=== PATIENT | female | born 1980 | race Native Hawaiian/Other Pacific Islander ===

== ENCOUNTER 2019-12-29 09:53 | Outpatient (CLI) | payer OTHER | END 2019-12-29 23:14 | disposition home or self-care (01) | LOC: US 09:53 | PROVIDERS: ATTEND Nurse Practitioner Family | DX: R60.0 Localized edema (principal) ==

== ENCOUNTER 2019-12-30 14:17 | Outpatient (CLI) | payer OTHER | END 2019-12-30 22:46 | disposition home or self-care (01) | LOC: US 14:17 | PROVIDERS: ATTEND Registered Nurse | DX: R22.42 Localized swelling, mass and lump, left lower limb (principal) ==

== ENCOUNTER 2021-12-08 12:36 | Outpatient (CLI) | payer OTHER | END 2021-12-08 23:11 | disposition home or self-care (01) | LOC: RAD 12:36 | PROVIDERS: ATTEND Registered Nurse | DX: M54.2 Cervicalgia (principal) ==

== ENCOUNTER 2022-11-02 09:24 | Outpatient (CLI) | payer OTHER | END 2022-11-02 19:13 | disposition home or self-care (01) | LOC: MAMMO 09:24 | PROVIDERS: ATTEND Registered Nurse | DX: Z12.31 Encounter for screening mammogram for malignant neoplasm of breast (principal) ==